=== PATIENT | male | born 1995 | race African-American/Black ===

== ENCOUNTER 2021-01-07 19:55 | Emergency (ER) | payer OTHER ==
[2021-01-07 20:37] VITALS: BP 109/65; PULSE 63; BMI 25.8
[2021-01-07] MEDS ORDERED: IBUPROFEN 600 MG TABLET (FP) PO ONE ×2 (22:47→22:52)
[2021-01-07] MEDS ORDERED: HYDROCORTISONE ACETATE 25 MG/SUPP.RECT PR ONE (22:47)
== END 2021-01-07 23:33 | disposition home or self-care (01) ==
LOC: JER 19:55
DX: K64.8 Other hemorrhoids (principal)
CPT/HCPCS: 99283-25